=== PATIENT | female | born 1990 | race Two or more races ===

== ENCOUNTER → 2025-01-13 | Outpatient (CLI) | payer OTHER ==
[2025-01-13 13:10] LABS: PLATELET COUNT, AUTOMATED 201 10^3/uL (150-450)
[2025-01-13 13:17] LABS: LDH LACTATE DEHYDROGENASE 183 U/L (120-246)
[2025-01-13 13:18] LABS: ALT/SGPT 20 U/L (7.0-40); AST/SGOT 19 U/L (<34); CREATININE FOR GFR 0.55 MG/DL (0.55-1.30); GLOMERULAR FILTRATION RATE > 90.0 (>60)
[2025-01-13 13:43] LABS: TOTAL PROTEIN,RANDOM URINE < 6.0 MG/DL (0.0-14.0)
[2025-01-13 13:48] LABS: HEPATITIS C VIRUS ABY INDEX < 0.02 INDEX (<0.8); HIV 1&2 SCREEN NEGATIVE (NEGATIVE)
[2025-01-13 14:19] LABS: Trichomonas vaginalis (AMP) NOT DETECTED (NEGATIVE)
[2025-01-13 14:43] LABS: GC DNA AMPLIFICATION NEGATIVE (NEGATIVE)
[2025-01-14 11:52] LABS: HBsAG CONFIRM SCRN REACTIVE (NON-REACTIVE)
== END ==
LOC: M PLALAB 09:13
PROVIDERS: ATTEND Obstetrics & Gynecology
DX: Z34.91 Encounter for supervision of normal pregnancy, unspecified, first trimester (principal)